=== PATIENT | female | born 2000 | race Hispanic/Latino ===

== ENCOUNTER 2022-08-03 09:17 | Emergency (ER) | payer MEDICAID, OTHER ==
[~2022-08-03] VITALS: Ht 160 cm; Wt 96.6 kg
[2022-08-03 09:19] VITALS: BP 135/78
[2022-08-03] MEDS ORDERED: CEPH500B PO (09:55)
[2022-08-03] MEDS ORDERED: CEPHALEXIN 500 MG CAPSULE PO ONE (10:00)
[2022-08-03] MEDS ORDERED: BACITRACIN 1 EACH PACKET TP ONE (10:00)
== END 2022-08-03 10:33 | disposition home or self-care (01) ==
LOC: EDH 09:17
DX: S61.211A Laceration without foreign body of left index finger without damage to nail, initial encounter (principal); X50.0XXA Overexertion from strenuous movement or load, initial encounter; Y93.89 Activity, other specified; Y92.89 Other specified places as the place of occurrence of the external cause; Y99.8 Other external cause status
CPT/HCPCS: 73140